=== PATIENT | female | born 1995 | race Caucasian/White ===

== ENCOUNTER 2017-07-31 22:17 | Emergency (ER) | payer OTHER ==
[~2017-07-31] VITALS: Ht 162.6 cm; Wt 69.7 kg
[2017-08-01] MEDS ORDERED: KETOROLAC 30 MG/1 ML ONE (00:22)
[2017-08-01] MEDS ORDERED: KETOROLAC 30 MG/1 ML IVPush ONE (00:30)
[2017-08-01] MEDS ORDERED: SODIUM CHLORIDE FLUSH 10ML SYR IVF ONE (00:30)
[2017-08-01 00:35] LABS: ANION GAP 11 mmol/L (5-15); CALCIUM 9.1 mg/dL (8.5-10.1); CHLORIDE 107 mmol/L (98-107); CREATININE 0.72 mg/dL (0.55-1.02)
[2017-08-01 00:40] LABS: BASOPHILS # (AUTO) 0.03 x10^3/uL (0-0.3); BASOPHILS % (AUTO) 0 % (0-1); EOSINOPHILS # (AUTO) 0.11 x10^3/uL (0-0.8); EOSINOPHILS % (AUTO) 1 % (1-7); LYMPHOCYTES % (AUTO) 31 % (22-44); MD NO; MEAN CORPUSCULAR HGB CONC 33.4 g/dL (32.4-35.8); MEAN CORPUSCULAR VOLUME 86.7 fL (80-100); MONOCYTES # (AUTO) 0.91 x10^3/uL (0-1.4); MONOCYTES % (AUTO) 10 % (2-9); NEUTROPHILS # (AUTO) 5.11 x10^3/uL (1.8-8.0); NEUTROPHILS % (AUTO) 57 % (42-75); PLATELET COUNT 385 x10^3/uL (130-400); RED BLOOD COUNT 4.39 x10^6/uL (3.82-5.3); RED CELL DISTRIBUTION WIDTH 13.3 % (9.6-15.2)
[2017-08-01] MEDS ORDERED: OMNIPAQUE 350 MG/ML, 100ML BOTTLE ONE (00:55)
[2017-08-01 01:26] VITALS: BP 117/89
== END 2017-08-01 01:29 | disposition home or self-care (01) ==
LOC: ED 08-01 01:06
DX: M94.0 Chondrocostal junction syndrome [Tietze] (principal)
CPT/HCPCS: 36415; 71275; 80048; 82040; 85025; 93005; 96374; 99285; J1885; Q9967